=== PATIENT | female | born 1995 | race Two or more races ===

== ENCOUNTER 2020-05-15 05:31 | Day surgery (SDC) | payer OTHER ==
[2020-05-15] MEDS ORDERED: PROTONIX40 MG PO (11:14)
== END 2020-05-15 13:00 | disposition home or self-care (01) ==
LOC: AMB-ENDOS 05:31
PROVIDERS: ATTEND Surgery
DX: K29.50 Unspecified chronic gastritis without bleeding (principal); K44.9 Diaphragmatic hernia without obstruction or gangrene; Z20.828 Contact with and (suspected) exposure to other viral communicable diseases